=== PATIENT | female | born 1985 | race Hispanic/Latino ===

== ENCOUNTER → 2019-02-27 | Outpatient (CLI) | payer OTHER ==
[~2019-02-27] MED LIST: GADODIAMIDE 10 MMOL/20 ML VIAL IV ONE; IOPAMIDOL 10 ML VIAL ONE
== END | disposition home or self-care (01) ==
LOC: RAH 12:40
PROVIDERS: ATTEND Physical Medicine & Rehabilitation
DX: M25.552 Pain in left hip (principal)
CPT/HCPCS: 27093; 73723; 77002; A9579; Q9966